=== PATIENT | female | born 2000 | race Caucasian/White ===

== ENCOUNTER 2020-12-09 14:23 | Emergency (ER) | payer OTHER, SELFPAY ==
--- NOTE | ~2020-12-09 | XR_ITS ---
EXAMINATION: PORTABLE CHEST 1 VIEW CLINICAL INFORMATION: SOB ASTHMA . COMPARISON: 1998. TECHNIQUE: Portable frontal view of the chest was obtained. FINDINGS: The lungs are well expanded. No focal infiltrate, effusion, edema, or pneumothorax. Cardiac and mediastinal silhouettes are within normal limits for technique. No acute bony abnormality seen. Scoliotic changes in the spine noted. XR/XR chest 1V IMPRESSION: No evidence of acute disease.
[2020-12-09 15:18] VITALS: BP 125/63; PULSE 84; RESP 16; TEMP 36.6; O2SAT 97; BMI 22.7
[2020-12-09 16:24] VITALS: PULSE 86; O2SAT 95
[2020-12-09] MEDS: Albuterol Sulfate (0.083%) 2.5 MG/3 ML VIAL.NEB 5 MG INHALE (16:24)
[2020-12-09 16:57] LABS: Influenza A PCR NEGATIVE (Negative); Influenza B PCR NEGATIVE (Negative); Resp Syncy Virus RNA Qual PCR NEGATIVE (Negative); SARS COV2 PCR INHOUSE NEGATIVE (Negative)
--- NOTE | 2020-12-09 17:22 | ED_ITS ---
HPI - Asthma General Chief Complaint: Asthma Stated Complaint: diff breathing - asthma Time Seen by Provider: 12/09/20 15:43 Source: patient Mode of arrival: ambulatory History of Present Illness HPI Narrative: 20-year-old female with a past medical history of asthma presenting to the ED complaining of asthma exacerbation since last night, worsening today while at work. Reports worsening SOB and nasal congestion, used albuterol inhaler/ProAir at home with some relief. Denies cough, fever, chills, chest pain, LE edema, recent travel, sick contacts, COVID-19 exposure, history of blood clots Related Data Previous Rx's Medication Instructions Recorded albuterol sulfate 5 mg INHALATION Q4H PRN #30 ea 12/09/20 fluticasone propionate [Flonase 2 spray INTRANASAL DAILY #16 g 12/09/20 Allergy Relief] Allergies Allergy/AdvReac Type Severity Reaction Status Date / Time amoxicillin [AMOXICILLIN] Allergy Unknown ANAPHYLAXIS Unverified 03/23/20 17:03 egg [EGGS] Allergy Unknown UNKNOWN Unverified 03/23/20 17:03 nut - unspecified [NUTS] Allergy Unknown ANAPHYLAXIS Unverified 03/23/20 17:03 Penicillins [PENICILLINS] Allergy Unknown ANAPHYLAXIS Unverified 03/23/20 17:03 pollen extracts [POLLEN] Allergy Unknown SHORTNESS Unverified 03/23/20 17:03 OF BREATH sesame seed [SESAME SEED] Allergy Unknown HIVES Unverified 03/23/20 17:03 shellfish derived Allergy Unknown UNKNOWN Unverified 03/23/20 17:03 [SHELLFISH DERIVED] strawberry [STRAWBERRY] Allergy Unknown ANGIOEDEMA Unverified 03/23/20 17:03 DAIRY PRODUCTS Allergy Unknown HIVES Uncoded 03/23/20 17:03 Review of Systems Review of Systems: Constitutional: No Fever, No Chills, No Night Sweats Cardiovascular: No Chest Pain, + SOB, No Edema, No Palpitations Respiratory: No Cough, No Sputum, + Wheezing Gastrointestinal: No Nausea, No Vomiting, No Abdominal pain Musculoskeletal: No joint pain, No Myalgias, No Joint Swelling Skin: No Skin Lesions, No rash Neuro: No Weakness, No Numbness, No Paresthesias Yes all other systems are reviewed and are negative PMFSH Past Medical History Attestation statement: The following information was validated with the patient. Medical History (Updated 12/09/20 @ 17:23 by DANIELLE Ochoa) Asthma Social History Social History Smoked in Last 30 Days: No Use of substances other than those prescribed or required for medical reasons: No Any prior treatment program specific to substance use: No Advance Directives: No Advance Directives Information Provided: Yes Patient : No Physical Exam Vital Signs: Vital Signs: Last Vital Signs Temp 97.9 F 12/09/20 15:18 Pulse 86 12/09/20 16:24 Resp 16 12/09/20 15:18 BP 125/63 12/09/20 15:18 Pulse Ox 97 12/09/20 15:18 Body Mass Index 22.7 Const: General: cooperative, healthy appearing and no acute distress Orientation/consciousness: patient oriented x3 Limitations: no limitations HENMT: Head: Yes normal to inspection Ears: hearing grossly normal bilaterally General nose exam: Normal external nose present Face and sinus: Yes normal facial exam Eyes: General: appearance normal, both eyes and all related structures EOM: EOMs intact bilaterally Neck: Neck: Yes normal visual inspection and Yes no meningeal signs Resp: Effort & Inspection: normal respiratory effort Auscultation: clear to auscultation bilaterally, no rales, no rhonchi and no wheezes Cardio: Rate: regular rate Heart sounds: S1 normal heart sound present and S2 normal heart sound present GI: Inspection: Yes normal to inspection Skin: Rashes: no rashes Wounds: no wounds Neuro: General: patient oriented x3 and no meningeal signs Gait exam (Neuro): Normal gait present Extrem: General: Yes normal to inspection, Yes no pedal edema and Yes no calf tenderness Course Course Course Narrative: XR chest 1V IMPRESSION: No evidence of acute disease. COVID-19/influenza/RSV negative >> results discussed with patient including worrisome signs and symptoms and strict return precautions MDM - Asthma MDM Narrative Medical decision making narrative: 20-year-old female with a past medical history of asthma presenting to the ED complaining of asthma exacerbation since last night, worsening today while at work. On exam vital signs stable, NAD, we ll appearing, lungs CTA, no LE edema. Concern for asthma exacerbation versus viral syndrome. Will obtain CXR and COVID-19 testing, and give neb treatment Lab Data Labs: Lab Results 12/09/20 Range/Units 15:46 Coronavirus (PCR) NEGATIVE (Negative) Influenza Type A (PCR) NEGATIVE (Negative) Influenza Type B (PCR) NEGATIVE (Negative) RSV RNA Qual (PCR) NEGATIVE (Negative) Discharge Plan Discharge Clinical Impression: Asthma with acute exacerbation Patient Disposition: Home, Self-Care Instructions: Asthma (ED) Additional Instructions: Your chest x-ray was unremarkable today in the ED You tested negative for COVID-19, the flu, and RSV Continue to use your inhalers at home Follow-up with her doctor If her symptoms persist or worsen, constant worsening shortness of breath, chest pain, fever or chills please return to the ED Prescriptions: New fluticasone propionate [Flonase Allergy Relief] 50 mcg/actuation spray,suspension 2 spray intranasal DAILY Qty: 16 RF: 0 albuterol sulfate 2.5 mg/0.5 mL solution for nebulization 5 mg inhalation Q4H PRN (Reason: shortness of breath or wheezing) Qty: 30 RF: 0 Referrals: Amanda Krause MD [Primary Care Provider] - 2 days Stand Alone Forms: Work/School Release Interventions: ED Discharge Assessment Last Done: 12/09/20 17:38 Discharge Date/Time: 12/09/20 17:35
== END 2020-12-09 17:35 | disposition home or self-care (01) ==
PROVIDERS: Emergency Provider Emergency Medicine; PCP Pediatrics
DX: J45.901 Unspecified asthma with (acute) exacerbation (principal); Z20.822 Contact with and (suspected) exposure to COVID-19; Z79.899 Other long term (current) drug therapy
CPT/HCPCS: 0241U; 36415; 71045; 94640; 99284